=== PATIENT | female | born 1995 | race Caucasian/White ===

== ENCOUNTER 2024-03-04 17:12 | Emergency (ER) | payer OTHER ==
[~2024-03-04] VITALS: Ht 152.4 cm; Wt 63.5 kg
[~2024-03-04 17:12] MED LIST: ACET325UDC; ALBU90OI INH; AMOCLA875 PO; AMOX500 PO; AZIT200SU PO; AZIT250 PO; CETI10 PO; CODGUAEL PO; MONT5TCH; NEOPOLHCSU OT; PERM5TC TOP; PROCODE120 PO; RXANTBENOT AU
== END 2024-03-04 20:28 | disposition home or self-care (01) ==
LOC: ER 17:12
DX: S86.911A Strain of unspecified muscle(s) and tendon(s) at lower leg level, right leg, initial encounter (principal); X50.9XXA Other and unspecified overexertion or strenuous movements or postures, initial encounter; Z79.899 Other long term (current) drug therapy
CPT/HCPCS: 99283